=== PATIENT | male | born 1995 | race American Indian/Alaskan Native ===

== ENCOUNTER 2019-08-20 00:29 | Emergency (ER) | payer SELFPAY ==
[2019-08-20 00:39] VITALS: BP 129/70
== END 2019-08-20 05:15 | disposition left against medical advice (07) ==
LOC: ED 00:29
DX: Z20.2 Contact with and (suspected) exposure to infections with a predominantly sexual mode of transmission (principal); Z53.21 Procedure and treatment not carried out due to patient leaving prior to being seen by health care provider